=== PATIENT | male | born 1995 | race Caucasian/White ===

== ENCOUNTER 2016-10-28 11:25 | Inpatient (IN) | payer BC ==
[2016-10-28 12:17] LABS: Hematocrit 51 % (42-52); Mean Corpuscular HGB Conc 34 g/dl (31-36); Mean Corpuscular Hemoglobin 31 pg (27-31); Mean Corpuscular Volume 93 fL (80-94); Mean Platelet Volume 8 um3 (7.4-10.4); Red Blood Count 5.42 10^6/ul (4.0-5.4); Red Cell Distribution Width 13 % (10.5-15)
--- NOTE | 2016-10-28 12:18 | RAD ---
HISTORY: Shortness of breath COMPARISONS: None VIEWS: 4: Frontal dual-energy and lateral views of the chest. FINDINGS: CARDIOMEDIASTINAL SILHOUETTE: The cardiomediastinal silhouette is normal. There is no midline shift. LENORA: The lenora are normal. PLEURA: There is large right-sided pneumothorax. LUNG PARENCHYMA: There is complete atelectasis of the right lung. ABDOMEN: The upper abdomen is clear. There is no subphrenic gas. BONES AND SOFT TISSUES: No bone or soft tissue abnormalities are noted. OTHER: None. IMPRESSION: LARGE RIGHT-SIDED PNEUMOTHORAX. PRELIMINARY FINDINGS WERE DISCUSSED WITH DR. DARBY IN THE EMERGENCY DEPARTMENT AT APPROXIMATELY 12:14 PM ON OCTOBER 28, 2016.
[2016-10-28 12:33] LABS: Albumin 4.9 g/dL (3.2-5.2); BUN/Creatinine Ratio 13.4 (8-20); Calcium 9.4 mg/dL (8.6-10.3); EGFR Non-African American 119.8 (>60); Globulin 2.9 g/dL (2-4); Potassium 3.9 mmol/L (3.5-5.0); Total Bilirubin 0.8 mg/dL (0.2-1.0); Total Protein 7.8 g/dL (6.4-8.9)
[2016-10-28] MEDS ORDERED: Buffered Lidocaine 0.9% SYRIN* 5 ML/SYR SYRINGE ONE (13:43)
[2016-10-28] MEDS ORDERED: Propofol* 10 MG/ML 20 ML BTL IV PUSH ONE (14:18)
[2016-10-28] MEDS ORDERED: Midazolam* 1 MG/ML 5 ML VIAL (5 MG) ONE (14:18)
[2016-10-28] MEDS ORDERED: fentaNYL* 50 MCG/ML 2 ML VIAL (100 MCG VIAL) ONE ×2 (14:18→16:23)
[2016-10-28] MEDS ORDERED: Succinylcholine* 20 MG/ML 10 ML VIAL ONE (14:18)
[2016-10-28] MEDS ORDERED: Atracurium* 10 MG/ML 10 ML VIAL ONE (14:18)
[2016-10-28] MEDS ORDERED: Bupivacaine 0.5% W/EPI SDV* 10 ML VIAL INJ ONE ×3 (14:23→14:24)
[2016-10-28] MEDS ORDERED: oxyCODONE/Acetamin 5/325 MG* TAB PO PRN (14:44)
[2016-10-28] MEDS ORDERED: Ketorolac INJ* 30 MG/ML 1 ML VIAL ONE (15:22)
[2016-10-28] MEDS ORDERED: Ondansetron INJ* 2 MG/ML VIAL ONE (15:22)
[2016-10-28] MEDS ORDERED: Ondansetron INJ* 2 MG/ML VIAL IV PRN (15:26)
[2016-10-28] MEDS ORDERED: DiMENhydriNATE IV* 50 MG/ML VIAL IV PUSH PRN (15:26)
[2016-10-28] MEDS ORDERED: HYDROcodone/ACETAMIN 5-325 MG* 1 TAB PO PRN (15:26)
[2016-10-28] MEDS ORDERED: oxyCODONE TAB* 5 MG TAB PO PRN (15:26)
[2016-10-28] MEDS ORDERED: Glycopyrrolate IV* 0.2 MG/ML 1 ML VIAL ONE (15:37)
[2016-10-28] MEDS ORDERED: Neostigmine Methylsulfate* 2 MG/2 ML SYRINGE ONE (15:37)
[2016-10-28] MEDS ORDERED: HYDROmorphone* 1 MG/ML 1 ML SYR ONE (16:23)
[2016-10-28] MEDS ORDERED: oxyCODONE/Acetamin 5/325 MG* TAB ONE (16:23)
--- NOTE | 2016-10-28 16:23 | HP ---
CC: Dr. Juany Bojorquez, [place], [place] * HISTORY AND PHYSICAL: DATE OF ADMISSION: 10/28/16. CHIEF COMPLAINT: Chest pain and dyspnea. HISTORY OF PRESENT ILLNESS: Patient is a 21-year-old male who comes in with sudden onset of pain in the shoulder and chest area, little bit of dyspnea. He states it feels very much like his previous pneumothorax. By history, he had a spontaneous pneumothorax about 6 months ago. He was down in [place] at the time, was in [facility], had a chest tube placed, spent 6 days in the hospital before going home and was told at that time that if he had a recurrence , he probably need a surgery. He indicates that his lung was about 80% collapsed at that time. PAST MEDICAL HISTORY: Also reveals previous knee cyst excision and he is otherwise quite fit and healthy. MEDICATIONS: No regular medications. ALLERGIES: No medical allergies. FAMILY HISTORY: Benign. No bleeding tendencies or anesthesia reactions. 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 He is a smoker. He is not currently . He is a social drinker, does not use any drugs or illicit substances. REVIEW OF SYSTEMS: Multisystem review: No chest pain, heart pain, or any cardiac disease. Pulmonary diseases, the pneumothorax as noted above. No emphysema or bronchitis. He has no history of hepatobiliary disease, hepatitis , or jaundice. No history of kidney stones or kidney problems. No gastrointestinal or GI issues in the past. No diabetes, thyroid or other endocrine. No major neuromuscular or psych issues. He did have a knee cyst as noted above. PHYSICAL EXAMINATION GENERAL: He is a well-developed, well-nourished male consistent with stated age. VITAL SIGNS: Blood pressure is 120/87, pulse 84 and regular, respirations 14 and unlabored, O2 saturation 99% on room air, temperature is 98.5. He is 5 feet 11 and 150 pounds with a BMI of 21. HEENT: Head and neck is unremarkable. NECK: Supple without any adenopathy. LUNGS: Show essentially no breath sounds at all on the right side. He does not appear to be in acute distress. HEART: Irregular, no abnormal sounds. ABDOMEN: Soft, flat, nontender. He does have a scar in the anterior axillary line just below the pectoralis on the right side consistent with a history of a previous chest tube. EXTREMITIES: Well perfused and without edema. SKIN: Warm and well perfused. He is not diaphoretic. He is not jaundiced. LABORATORY STUDIES: Show essentially normal CBC, platelet count, and so forth. Electrolytes are normal. He has a chest x-ray today which shows a very large right pneumothorax which is approximately 80% to 90% collapsed. There is no mediastinal shift. No hemothorax is evident. IMPRESSION: A 21-year-old male with a spontaneous right pneumothorax, now recurrent about 6 months after the last event. PLAN/RECOMMENDATIONS: I discussed with him at length the pros and cons of surgery versus just putting a tube in to expand the lung like he had done previously. I think with an 80% collapse before, now 6 months later another 80 % collapse, I think his chance of a subsequent collapse if we treat him with a chest tube would be substantial and after having such a discussion, he would like to go ahead with the videothoracoscopy for bleb resection and pleurodesis. He understands the procedure, the rationale, the risks and the expected recovery as well as the alternatives to surgery. All of his questions have been answered and he agrees to proceed in the fashion outlined. [id number]/[facility] #: [id number] SAVITA
[2016-10-28] MEDS: fentaNYL* 50 MCG/ML 2 ML VIAL (100 MCG VIAL) IV PRN ×3 (16:25→16:30)
[2016-10-28] MEDS: HYDROmorphone* 1 MG/ML 1 ML SYR IV PRN ×2 (16:26→16:30)
[2016-10-28] MEDS: oxyCODONE/Acetamin 5/325 MG* TAB PO PRN (16:34)
--- NOTE | 2016-10-28 17:08 | RAD ---
INDICATION: Right chest tube placement status post pneumothorax. COMPARISON: Chest x-ray October 28, 2016 acquired 1159 hours TECHNIQUE: Single AP portable view of the chest was obtained at 1538 hours. FINDINGS: Image quality is compromised due to the relative inferiority of a portable chest x-ray. There is been interval placement of a right-sided chest tube with the tip terminating at the right lung apex. There has been near complete resolution of the right-sided pneumothorax. There is no mediastinal shift. Left lung is clear. IMPRESSION: Near complete resolution of right-sided pneumothorax status post chest tube placement
[2016-10-28] MEDS: D5LR 1000 ML BAG* 1,000 ML IV SCH (17:45)
[2016-10-28] MEDS: Ibuprofen TAB* 800 MG PO SCH ×2 (17:57→22:32)
--- NOTE | 2016-10-28 19:04 | ED ---
Agustin Teran Thomas, scribed for Russell Robles MD on 10/28/16 at 1153 . Shortness of Breath - HPI Summary HPI Summary: The pt is a 21 y/o M with a Hx of pneumothorax presenting to the ED c/o CP and SOB that began today at 07:00. The pain is rated 9/10. The pain is aggravated and alleviated by nothing. 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 PMHx: lung rupture (5-6 months ago). PSHx: R knee repair. SHx: smoking ( cigarettes), no illicit drugs, and occasional alcohol. FHx: HTN, DM. His previous PTX arose spontaneously. - History of Current Complaint Chief Complaint: EDShortnessOfBreath Time Seen by Provider: 10/28/16 11:38 Hx Obtained From: Patient Onset/Duration: Sudden Onset, Lasting Hours - this AM at 07:00, Still Present Timing: Constant Aggrevating Factors: Nothing Alleviating Factors: Nothing Associated Signs & Symptoms: Chest Pain Unrelated to Cough Related History: Similar Episode - PTX 5-6 months ago - Allergy/Home Medications Allergies/Adverse Reactions: Allergies Allergy/AdvReac Type Severity Reaction Status Date / Time No Known Allergies Allergy Verified 03/21/12 22:14 PMH/Surg Hx/FS Hx/Imm Hx Previously Healthy: No Cardiovascular History: Denies: Hx Myocardial Infarction Respiratory History: Reports: Other Respiratory Problems/Disorders - Hx pneumothorax - Surgical History Surgery Procedure, Year, and Place: R knee repair Infectious Disease History: Denies: Traveled Outside the [place] in Last 30 Days - Family History Known Family History: Positive: Hypertension, Other - POS: CVA - Social History Alcohol Use: Occasionally Hx Substance Use: No Substance Use Type: Reports: None Hx Tobacco Use: Yes Smoking Status (MU): Current Every Day Smoker Review of Systems Negative: Fever Positive: Chest Pain - radiates to R shoulder Positive: Shortness Of Breath - aggravated by walking, onset this AM at 07:00 All Other Systems Reviewed And Are Negative: Yes Physical Exam - Summary Physical Exam Summary: VITAL SIGNS: Reviewed. GENERAL: ~Patient is a well-developed and nourished male who is lying comfortable in the stretcher. ~Patient is not in any acute respiratory distress. HEAD AND FACE: No signs of trauma. ~No ecchymosis, hematomas or skull depressions. No sinus tenderness. EYES: PERRLA, EOMI x 2, No injected conjunctiva, no nystagmus. EARS: Hearing grossly intact. Ear canals and tympanic membranes are within normal limits. MOUTH: Oropharynx within normal limits. NECK: Supple, trachea is midline, no adenopathy, no JVD, no carotid bruit, no c- spine tenderness, neck with full ROM. CHEST: Symmetric, no tenderness at palpation LUNGS: Decreased breath sounds in the R side. No wheezing or crackles. CVS: Regular rate and rhythm, S1 and S2 present, no murmurs or gallops appreciated. ABDOMEN: Soft, non-tender. No signs of distention. No rebound no guarding, and no masses palpated. Bowel sounds are normal. EXTREMITIES: FROM in all major joints, no edema, no cyanosis or clubbing. NEURO: Alert and oriented x 3. No acute neurological deficits. Speech is normal and follows commands. SKIN: Dry and warm Triage Information Reviewed: Yes Vital Signs On Initial Exam: Initial Vitals Temp Pulse Resp BP Pulse Ox 98.7 F 80 17 121/85 98 10/28/16 11:30 10/28/16 11:30 10/28/16 11:30 10/28/16 11:30 10/28/16 11:30 Vital Signs Reviewed: Yes Diagnostics - Vital Signs Vital Signs Temp Pulse Resp BP Pulse Ox 10/28/16 11:30 98.7 F 80 17 121/85 98 - Laboratory Lab Results: Lab Results 10/28/16 10/28/16 Range/Units 12:00 12:00 WBC 11.0 H (3.5-10.8) 10^3/ul RBC 5.42 H (4.0-5.4) 10^6/ul Hgb 17.0 (14.0-18.0) g/dl Hct 51 (42-52) % MCV 93 (80-94) fL MCH 31 (27-31) pg MCHC 34 (31-36) g/dl RDW 13 (10.5-15) % Plt Count 227 (150-450) 10^3/ul MPV 8 (7.4-10.4) um3 Neut % (Auto) 73.8 (38-83) % Lymph % (Auto) 15.6 L (25-47) % [place] % (Auto) 7.9 (1-9) % Eos % (Auto) 2.4 (0-6) % Baso % (Auto) 0.3 (0-2) % Absolute Neuts (auto) 8.1 H (1.5-7.7) 10^3/ul Absolute Lymphs (auto) 1.7 (1.0-4.8) 10^3/ul Absolute Monos (auto) 0.9 H (0-0.8) 10^3/ul Absolute Eos (auto) 0.3 (0-0.6) 10^3/ul Absolute Basos (auto) 0 (0-0.2) 10^3/ul Absolute Nucleated RBC 0.01 10^3/ul Nucleated RBC % 0.1 Sodium 136 (133-145) mmol/L Potassium 3.9 (3.5-5.0) mmol/L Chloride 104 (101-111) mmol/L Carbon Dioxide 25 (22-32) mmol/L Anion Gap 7 (2-11) mmol/L BUN 11 (6-24) mg/dL Creatinine 0.82 (0.67-1.17) mg/dL Est GFR ( Amer) 154.0 (>60) Est GFR (Non-Af Amer) 119.8 (>60) BUN/Creatinine Ratio 13.4 (8-20) Glucose 94 (70-100) mg/dL Calcium 9.4 (8.6-10.3) mg/dL Total Bilirubin 0.80 (0.2-1.0) mg/dL AST 24 (13-39) U/L ALT 20 (7-52) U/L Alkaline Phosphatase 41 (34-104) U/L Total Protein 7.8 (6.4-8.9) g/dL Albumin 4.9 (3.2-5.2) g/dL Globulin 2.9 (2-4) g/dL Albumin/Globulin Ratio 1.7 (1-3) Result Diagrams: 10/28/16 12:00 10/28/16 12:00 Lab Statement: Any lab studies that have been ordered have been reviewed, and results considered in the medical decision making process. - Radiology CXR Xray Interpretation: Positive (See Comments) - LARGE RIGHT-SIDED PNEUMOTHORAX. PRELIMINARY FINDINGS WERE DISCUSSED WITH DR. ROBLES IN THE EMERGENCY DEPARTMENT AT APPROXIMATELY 12:14 PM ON OCTOBER 28, 2016. Radiology Interpretation Completed By: Radiologist - EKG 12:13 Cardiac Rate: NL - 81 BPM EKG Interpretation: Sinus rhythm without ST elevations Course/Dx - Course Assessment/Plan: The pt is a 21 y/o M with a Hx of pneumothorax presenting to the ED c/o CP and SOB that began today at 07:00. The pain is rated 9/10. The SOB is aggravated by walking. The SOB is alleviated by nothing. 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 PMHx: lung rupture (5-6 months ago). PSHx: R knee repair. SHx: smoking (cigarettes), no illicit drugs, and occasional alcohol. FHx: HTN, DM. His previous PTX arose spontaneously. Test results are without significant abnormalities except WBC 11. EKG is normal sinus rhythm without ST elevation and CXR shows a large R-sided hemothorax. I discussed the case with Dr. Dominique, who admits the patient to his services for further workup and management. He is hemodynamically stable and alert and oriented x3. - Diagnoses Provider Diagnoses: Pneumothorax - Physician Notifications Discussed Care of Patient With: Poncho Dominique Time Discussed With Above Provider: 12:27 Instructed by Provider To: Other - Dr. Dominique, surgery, will come to the ED to see the patient. He will admit the paitent to his services. Discharge - Discharge Plan Condition: Fair Disposition: ADMITTED TO [facility] The documentation as recorded by the Agustin cheng Thomas accurately reflects the service I personally performed and the decisions made by me, Russell Robles MD.
--- NOTE | 2016-10-29 01:51 | OP ---
CC: Juany Bojorquez NP, [place] * DATE OF OPERATION: 10/28/16 - ROOM #333 DATE OF : 89 SURGEON: Poncho Dominique MD [employer] MACHINE SETTER: Caridad Zamora NP ANESTHESIOLOGIST: Dr. Alba. ANESTHESIA: General anesthetic. PRE-OP DIAGNOSIS: Spontaneous right pneumothorax. POST-OP DIAGNOSIS: Spontaneous right pneumothorax. OPERATIVE PROCEDURE: Right video thoracoscopy with bleb resection and pleurodesis as well as intercostal nerve block. DESCRIPTION OF PROCEDURE: The patient was supine on the operative table. At the time of induction of anesthesia, a 14-gauge angiocatheter was placed into the second interspace anteriorly to avoid development of tension pneumo-thorax at the time of intubation. Once he has been intubated and bronchoscopy was carried out and the double lumen intubation was found to be in excellent position, the lung was isolated, ventilating only the left side and then the angio-catheter was removed. The patient was then turned in the lateral decubitus position with the right chest upward. Pressure points were appropriately padded and positioned. Axillary rolls in place. Nice bag was utilized. Gel pads were utilized. The right lateral chest was prepped with antiseptic and draped in a sterile fashion. Local infiltrative anesthesia was administered. Approximately 2 cm incision was created in approximately the eighth interspace and Thoracoport was placed. Video scope was placed. Additional 5 mm sites were created, anterior axillary line and posterior axillary line and examination of the pleural space revealed the lower lobe was normal, superior segment normal, fissure normal. The upper lobe has several centimeter sized blebs at the apex. These were removed using 2 firings of an EndoGIA stapler with a 60 mm tomlin cartridge with excellent closure. The specimen was retrieved and sent in formalin to pathologic evaluation. Multilevel intercostal nerve block was carried out at 5 levels under direct vision using about 2 mL of local anesthetic at each site. Mechanical pleurodesis was carried out using a piece of Marlex mesh. This roughed up the pleura nicely. The Marlex was then retrieved. A 28-Moldovan chest tube was placed through the site, sutured at the skin with 2-0 Prolene. The lung was allowed to inflate and was in good condition and the smaller incisions were closed with 5-0 Vicryl followed by Steri-Strips. The chest catheter was connected to a Pleur -evac drainage. He was awakened, extubated, and brought to Recovery in good condition. No complications. Drain is 28-Moldovan chest tube. Sponge and instrument counts were correct. Estimated blood loss 30 mL. Specimen was apical blebs. [id number]/[facility] #: [id number] MTDD
[2016-10-29] MEDS: oxyCODONE/Acetamin 5/325 MG* TAB PO PRN ×4 (03:26→21:20)
[2016-10-29] MEDS: D5LR 1000 ML BAG* 1,000 ML IV SCH (06:33)
[2016-10-29] MEDS: Ibuprofen TAB* 800 MG PO SCH ×3 (06:34→23:38)
--- NOTE | 2016-10-29 07:57 | RAD ---
HISTORY: Right pneumothorax, status post thoracoscopy COMPARISONS: October 28, 2016 VIEWS:1: Single frontal portable view of the chest at 7:28 AM FINDINGS: LINES AND TUBES: A right-sided chest tube is noted CARDIOMEDIASTINAL SILHOUETTE: The cardiomediastinal silhouette is normal for portable technique. PLEURA: The costophrenic angles are sharp. No pleural abnormalities are noted. LUNG PARENCHYMA: The lungs are clear. ABDOMEN: The upper abdomen is clear. There is no subphrenic gas. There is no appreciable residual pneumothorax. BONES AND SOFT TISSUES: No bone or soft tissue abnormalities are noted. IMPRESSION: LINES AND TUBES ABOVE. NO ACTIVE CARDIOPULMONARY DISEASE.
[2016-10-29] MEDS: Docusate CAP* 100 MG PO SCH (09:06)
--- NOTE | 2016-10-30 07:25 | PN ---
Progress Note - Progress Note Date of Service: 10/30/16 Note: Surgery Mr. Higgins denies pain, SOB, CP. He is anxious to be out of the hospital and back to work. Vital Signs 10/29/16 10/29/16 10/29/16 08:00 08:07 09:07 Temperature 98.8 F Pulse Rate 79 Respiratory 18 15 18 Rate Blood Pressure 100/63 (mmHg) O2 Sat by Pulse 100 Oximetry 10/29/16 10/29/16 10/29/16 11:07 11:15 15:01 Temperature 98.3 F Pulse Rate 73 Respiratory 18 16 18 Rate Blood Pressure 134/50 (mmHg) O2 Sat by Pulse 99 Oximetry 10/29/16 10/29/16 10/29/16 15:04 19:10 21:20 Temperature 98.5 F 97.8 F Pulse Rate 65 84 Respiratory 16 16 16 Rate Blood Pressure 107/57 97/57 (mmHg) O2 Sat by Pulse 100 99 Oximetry 10/29/16 10/29/16 10/29/16 22:00 23:20 23:55 Temperature 98.3 F Pulse Rate 72 Respiratory 16 16 17 Rate Blood Pressure 106/59 (mmHg) O2 Sat by Pulse 100 Oximetry 10/30/16 03:27 Temperature 98.5 F Pulse Rate 80 Respiratory 16 Rate Blood Pressure 120/73 (mmHg) O2 Sat by Pulse 99 Oximetry lungs: clear to ausc, symmetric. heart: reg. CT: min. cough air leak; 150 cc serosanguinous drainage since yesterday AM ( level 460) Intake & Output 10/29/16 10/30/16 10/30/16 22:59 06:59 14:59 Intake Total 1240 1200 Output Total 635 2350 Balance 605 -1150 Intake: Oral 1240 1200 Output: Chest Tube #1 35 50 Urine 600 2300 Other: # Bowel Movements 0 A/P: Doing well; will check CXR in AM and reassess drainage and air leak. CLFoster
[2016-10-30] MEDS: Ibuprofen TAB* 800 MG PO SCH ×3 (08:21→23:16)
[2016-10-30] MEDS: Docusate CAP* 100 MG PO SCH (08:21)
[2016-10-30] MEDS: oxyCODONE/Acetamin 5/325 MG* TAB PO PRN ×2 (08:27→17:21)
[2016-10-31] MEDS: oxyCODONE/Acetamin 5/325 MG* TAB PO PRN (03:36)
[2016-10-31] MEDS: Docusate CAP* 100 MG PO SCH (08:18)
[2016-10-31] MEDS: Ibuprofen TAB* 800 MG PO SCH (08:18)
[2016-10-31 09:46] VITALS: BP 120/75
--- NOTE | 2016-10-31 09:56 | PN ---
Progress Note - Progress Note Date of Service: 10/31/16 Note: Surgery Mr. Headley reports no new problems. He denies pain, but is not looking forward to the tube coming out. Vital Signs 10/30/16 10/30/16 10/30/16 10:27 11:52 15:09 Temperature 97.5 F 98.2 F Pulse Rate 83 75 Respiratory 16 16 16 Rate Blood Pressure 108/53 105/60 (mmHg) O2 Sat by Pulse 99 99 Oximetry 10/30/16 10/30/16 10/30/16 17:21 19:21 20:19 Temperature 98.0 F Pulse Rate 78 Respiratory 18 16 16 Rate Blood Pressure 107/64 (mmHg) O2 Sat by Pulse 100 Oximetry 10/30/16 10/30/16 10/31/16 20:24 23:15 03:19 Temperature 98.0 F 97.6 F Pulse Rate 74 65 Respiratory 16 16 16 Rate Blood Pressure 104/57 100/54 (mmHg) O2 Sat by Pulse 99 98 Oximetry 10/31/16 10/31/16 10/31/16 03:36 05:36 07:53 Temperature 97.6 F Pulse Rate 76 Respiratory 16 18 16 Rate Blood Pressure 120/75 (mmHg) O2 Sat by Pulse [address]: no air leak, 85cc overnight CXR: lung is up Intake & Output 10/30/16 10/31/16 10/31/16 22:59 06:59 14:59 Intake Total 1240 Output Total 1155 10 650 Balance 85 -10 -650 Intake: Oral 1240 Output: Chest Tube #1 35 10 Urine 1120 650 A/P: Doing well, tube removed without difficulty. Can go home.
--- NOTE | 2016-10-31 11:09 | RAD ---
Indication: Follow-up right-sided pneumothorax. Comparison is previous exam dated October 29, 2016. 2 views of the chest including dual energy PA views demonstrates right chest tube in place. There may be a small right apical pneumothorax. Left lung field is clear. IMPRESSION: Likely small right apical pneumothorax. Right chest tube is in place.
--- NOTE | 2016-11-01 21:31 | DS ---
CC: Juany Bojorquez NP * DISCHARGE SUMMARY: DATE OF ADMISSION: 10/28/16 DATE OF DISCHARGE: 10/31/16 PRINCIPAL ADMITTING DIAGNOSIS: Spontaneous right pneumothorax. OPERATIVE PROCEDURE ON THIS ADMISSION: Right video thoracoscopy with bleb resection and pleurodesis. COMPLICATIONS: None. HOSPITAL COURSE: The patient is a 21-year-old male, who came to the hospital the second time with right pneumo-thorax. The previous one was treated about 6 months ago with a 6-day hospitalization. After discussion with the patient, it was decided that video thoracoscopy would be carried out and he was taken to the operating room where he underwent right video thoracoscopy, bleb resection, and pleurodesis. He had a chest tube left in place. He had an uneventful post- operative course with gradual improvement in pain control, appetite, ambulation. There was no air leak postoperatively. He had gradual resolution of the chest tube drainage and the chest tube was removed and he was discharged home on 10/31/16. He was discharged home with instructions and will follow up in the office in the near future. [id number]/[facility] #: [id number] MTDRuss
== END 2016-10-31 11:05 | disposition home or self-care (01) | DRG 120 ==
LOC: ED 11:25 → OR 15:27 → SSU 18:05
PROVIDERS: ADMIT Surgery; ATTEND Surgery
PROC: 0B5P4ZZ Destruction of Left Pleura, Percutaneous Endoscopic Approach (ICD-10-PCS; 2016-10-28)
PROC: 0BBC4ZZ Excision of Right Upper Lung Lobe, Percutaneous Endoscopic Approach (ICD-10-PCS; principal; 2016-10-28 14:00)
DX: J93.83 Other pneumothorax (principal); J43.8 Other emphysema; F17.210 Nicotine dependence, cigarettes, uncomplicated
CPT/HCPCS: 36415; 71010; 71020; 80053; 85025; 88307; 93005; 94760; A9270-GY; J0330; J1170; J1885; J2250; J2405; J2704; J3010